=== PATIENT | female | born 1990 | race African-American/Black ===

== ENCOUNTER 2017-03-05 15:47 | Inpatient (IN) | payer MEDICAID ==
[~2017-03-05] VITALS: Ht 157.5 cm; Wt 84.5 kg
[~2017-03-05 15:47] MED LIST: ADVAIR IH; AMOXICILLIN 50500 MG PO; ANTIBIOTIC FOR ACNE; BACTRIM DS 8001 TAB PO; CEFTIN 250250 MG/TAB PO; CEPHALEXIN500 M1 PO; CLARITIN; CLEOCIN HCL300 MG PO; FLEXERIL 1010 MG/TAB PO; MOTRIN 600600 MG/TAB PO; NO HOME MEDICATIONS; NORCO 325 MG-51 TAB PO; PHENERGAN 25 TA25 MG PO; PHENERGAN25 MG RC; PRENATAL1 TA1 PO; PROVENTIL0.09 MG/A1 IH; PYRIDIUM200 M1 PO; SEPTRA DS 8001 TAB PO; SINGULAIR; SINGULAIR10 MG PO; SKELAXIN 4400 MG/TAB PO; ULTRAM 50MG TAB50 MG PO; VENTOLIN0.09 MG IH; ZOFRAN8 MG PO
[2017-04-05] MEDS ORDERED: PRENATAL (15:43)
[2017-04-16] VITALS (39 sets, daily range): BP systolic 96–131; BP diastolic 52–85; PULSE 74–111; TEMP 97.9–98.2
[2017-04-16] MEDS ORDERED: PROTONIX 40MG T40 MG PO (07:55)
[2017-04-16 08:30] LABS: BASO % 0.5 % (0.0-2.0); EOS # 0.2 (0.0-0.7); EOS % 2.9 % (0-4.0); GRAN # 4.3 (1.4-6.5); GRAN % 65.4 % (42.2-75.2); LYMPH # 1.4 (1.2-3.4); LYMPH % 21.4 % (20.0-51.0); MEAN CELL VOLUME 86 fl (80.0-100.0); MEAN CORPUSCULAR HGB CONC 33 g/dl (33.0-37.0); MEAN PLATELET VOLUME 12.2 fl (7.4-10.4); MONO # 0.6 (0.1-0.6); MONO % 8.9 % (1.7-9.3); PLATELET COUNT 313 K/mm3 (130-400); RED BLOOD COUNT 3.53 M/mm3 (4.10-5.30); WHITE BLOOD COUNT 6.6 K/mm3 (4.8-10.8)
[2017-04-16 08:31] LABS: HEMATOCRIT 30.2 % (37.0-47.0); MEAN CORPUSCULAR HEMOGLOBIN 28 pg (27.0-31.0)
[2017-04-17 00:05] VITALS: BP 102/48; PULSE 78; TEMP 98.7
[2017-04-17 06:58] VITALS: BP 112/60; PULSE 81; TEMP 97.9
[2017-04-17] MEDS ORDERED: PERCOCET 325 MG1 TA2 PO (12:22)
[2017-04-17] MEDS ORDERED: MOTRIN 800800 MG/TAB PO (12:22)
[2017-04-17 16:20] VITALS: BP 104/56; PULSE 77; TEMP 97.6
== END 2017-04-17 17:55 | disposition home or self-care (01) | DRG 775 ==
LOC: LDR 04-16 06:38 → OB 04-16 06:54 → EDSTATUS 04-23 06:33 → LDRO 04-23 15:47
PROVIDERS: Obstetrics & Gynecology
PROC: 10E0XZZ Delivery of Products of Conception, External Approach (ICD-10-PCS; principal; 2017-04-16)
PROC: 3E033VJ Introduction of Other Hormone into Peripheral Vein, Percutaneous Approach (ICD-10-PCS; 2017-04-16)
DX: O99.334 Smoking (tobacco) complicating childbirth (principal); F17.210 Nicotine dependence, cigarettes, uncomplicated; Z3A.39 39 weeks gestation of pregnancy; Z37.0 Single live birth
CPT/HCPCS: J2590; J2795; J7120

== ENCOUNTER 2017-04-05 15:24 | Outpatient (CLI) | payer MEDICAID ==
[~2017-04-05] VITALS: Ht 157.5 cm; Wt 84.5 kg
[2017-04-05 15:36] VITALS: BP 102/63; PULSE 104; TEMP 98.1
[2017-04-05] MEDS ORDERED: PRENATAL (15:43)
[2017-04-05 16:35] VITALS: BP 112/62; PULSE 96
== END 2017-04-05 16:50 | disposition home or self-care (01) ==
LOC: LDRO 15:24
DX: Z34.83 Encounter for supervision of other normal pregnancy, third trimester (principal); Z3A.37 37 weeks gestation of pregnancy